=== PATIENT | female | born 1960 | race Caucasian/White ===

== ENCOUNTER 2021-09-02 10:23 | Emergency (ER) | payer BC | END 2021-09-02 14:00 | LOC: JVIRT 10:23 | DX: J34.89 Other specified disorders of nose and nasal sinuses (principal); Z20.822 Contact with and (suspected) exposure to COVID-19 | CPT/HCPCS: C9803-CS; Q3014-GT; U0003; U0005 ==

== ENCOUNTER 2022-02-19 19:24 | Emergency (ER) | payer BC ==
[2022-02-19 19:33] VITALS: BP 156/95; PULSE 68; RESP 17; TEMP 97.8; BMI 28.0
[2022-02-19] MEDS ORDERED: SILVER SULFADIAZINE 1% TOP CREAM 50 GM JAR TP ONE (19:45)
== END 2022-02-19 20:02 | disposition home or self-care (01) ==
LOC: FER 19:24
DX: T21.24XA Burn of second degree of lower back, initial encounter (principal)
CPT/HCPCS: 99283-25